=== PATIENT | male | born 1980 ===

== ENCOUNTER 2024-10-26 11:56 | Emergency (ER) | payer OTHER, SELFPAY ==
--- NOTE | ~2024-10-26 | XR_ITS ---
EXAMINATION: XR CHEST 2 VIEWS HISTORY: pain COMPARISON: There are no prior studies for comparison. FINDINGS: PA and lateral views of the chest are submitted. The lungs are expanded and clear. There is no pleural effusion, pneumothorax, or pulmonary vascular congestion. The heart is normal in size. There is degenerative disc disease of the spine. XR/XR chest 2V IMPRESSION: Clear lungs. Electronically signed by: Slade Connor MD 10/26/2024 01:22 PM [facility]
[2024-10-26 12:01] VITALS: BP 118/76; PULSE 93; O2SAT 97
--- NOTE | 2024-10-26 12:01 | ECG_ITS ---
Test Reason : chest pain Blood Pressure : */* mmHG Vent. Rate : 93 BPM Atrial Rate : 93 BPM P-R Int : 174 ms QRS Dur : 108 ms QT Int : 352 ms P-R-T Axes : 41 -18 7 degrees QTcB Int : 437 ms Normal sinus rhythm Normal ECG No previous ECGs available Referred By: Generic ED Physician Electronically Signed By: DARSHANA JOHNSON MD
[2024-10-26 12:30] VITALS: BP 141/78; PULSE 92; RESP 18; TEMP 36.9; O2SAT 99; BMI 75.5
--- NOTE | 2024-10-26 12:33 | ED_ITS ---
HPI - Chest Pain General Chief Complaint: Chest Pain Stated Complaint: SQUEEZING CP PER EMS Related Data Allergies Allergy/AdvReac Type Severity Reaction Status Date / Time No Known Allergies Allergy Verified 10/26/24 12:32 [facility] Social History Social History Advance Directives: No Advance Directives Information Provided: No Physical Exam Vital Signs: Vital Signs: Last Vital Signs Temp 98.4 F 10/26/24 12:30 Pulse 92 10/26/24 12:30 Resp 18 10/26/24 12:30 BP 141/78 H 10/26/24 12:30 Pulse Ox 99 10/26/24 12:30 O2 Del Method Room Air 10/26/24 12:30 BMI result Body Mass Index 75.5 Course Course Course Narrative: RME, this is a rapid medical exam performed by Lucas Mcarthur please refer to primary provider for complete H&P- 44-year-old male past medical history significant for hepatitis-C presents for evaluation of chest pain. He had an EKG ordered. Plan for labs Discharge Plan Discharge Clinical Impression: Chest pain Patient Disposition: Left W/O Completing Treatment Discharge Date/Time: 10/26/24 20:12
--- NOTE | 2024-10-26 19:46 | PC.NURSE ---
attempted to call pt back to bring to room at 1932 however no answer x 3 from previous day shift they were unable to obtain labs earlier in the day due to difficult draw
== END 2024-10-26 20:12 | disposition left against medical advice (07) ==
LOC: HO.ED 20:08
PROVIDERS: Emergency Provider Emergency Medicine
DX: R07.89 Other chest pain (principal)
CPT/HCPCS: 71046; 93005; 99283

== ENCOUNTER → 2024-10-26 12:01 | Outpatient (BNV) | payer MEDICAID, SELFPAY | PROVIDERS: Visit Provider Internal Medicine Cardiovascular Disease | DX: R07.9 Chest pain, unspecified (principal) | CPT/HCPCS: 93010 ==

== ENCOUNTER → 2024-10-26 12:34 | Outpatient (BNV) | payer MEDICAID, SELFPAY | PROVIDERS: Visit Provider Radiology Diagnostic Radiology | DX: R07.9 Chest pain, unspecified (principal) | CPT/HCPCS: 71046 ==